=== PATIENT | female | born 1930 | race Caucasian/White ===

== ENCOUNTER 2018-11-14 10:51 | Emergency (ER) | payer MEDICARE ==
[~2018-11-14] VITALS: Ht 165.1 cm; Wt 50.0 kg
--- NOTE | 2018-11-14 11:38 | NUR ---
ADONAY HOLLOWAY AT BEDSIDE.
[2018-11-14] MEDS ORDERED: normal saline 500ml IV soln 1,000 ML IV ONE (12:55)
[2018-11-14] MEDS ORDERED: morphine 2 MG/ML inj. syringe IV ONE (13:15)
--- NOTE | 2018-11-14 13:17 | NUR ---
ASSUMED CARE OF PT FROM MARITZA BUI
[2018-11-14 13:28] LABS: BASOPHILS % (AUTO) 0.2 % (0-1); EOSINOPHILS % (AUTO) 0.4 % (0-6); HEMATOCRIT 41.7 % (35.0-45.0); HEMOGLOBIN 13.9 g/dl (12.0-16.0); LYMPHOCYTES # (AUTO) 0.9 X10'3 (1.1-4.8); LYMPHOCYTES % (AUTO) 9.1 % (21-51); MEAN CORPUSCULAR HEMOGLOBIN 30.9 PG (27.0-31.0); MEAN CORPUSCULAR HGB CONC 33.3 % (33.0-36.5); MEAN PLATELET VOLUME 9.2 FL (7.4-10.4); MONOCYTES # (AUTO) 0.8 X10'3 (0-0.9); MONOCYTES % (AUTO) 8.5 % (2-12); NEUTROPHILS % (AUTO) 81.8 % (42-75); PLATELET COUNT 276 X10'3 (140-440); RED BLOOD COUNT 4.49 X10'6 (4.20-5.60); RED CELL DISTRIBUTION WIDTH 12.7 % (11.5-14.5); WHITE BLOOD COUNT 9.7 X10'3 (4.5-11.0)
--- NOTE | 2018-11-14 13:40 | NUR ---
PT IN XRAY
[2018-11-14 13:47] LABS: ALANINE AMINOTRANSFERASE 23 U/L (12-78); ALBUMIN 3.2 G/DL (3.4-5.0); ALBUMIN/GLOBULIN RATIO 1.1 (1.1-1.5); ALKALINE PHOSPHATASE 82 IU/L (46-116); ANION GAP 9 (8-16); ASPARTATE AMINO TRANSFERASE 19 U/L (10-37); BILIRUBIN,TOTAL 0.7 MG/DL (0.1-1.0); BLOOD UREA NITROGEN 26 MG/DL (7-18); BUN/CREATININE RATIO 35.1 (6.6-38.0); CALCIUM 8.6 MG/DL (8.5-10.1); CHLORIDE 107 MMOL/L (99-107); CREATININE 0.74 MG/DL (0.40-0.90); GLUCOSE 129 MG/DL (70-104); POTASSIUM 3.8 MMOL/L (3.5-5.1); SODIUM 142 MMOL/L (135-145); TOTAL CARBON DIOXIDE 26.3 MMOL/L (24-32); TOTAL PROTEIN 6.2 G/DL (6.4-8.2); eGFR 74 ML/MIN
--- NOTE | 2018-11-14 14:05 | NUR ---
IN AND OUT CATH DONE WITH STERILE TECHNIQUE, PT JAMES WELL, NO COMPLICATIONS, 300ML OF DARK YELLOW URINE INITIAL OUTPUT, SAMPLE SENT TO LAB
--- NOTE | 2018-11-14 14:07 | NUR ---
PT SAID PAIN 5/10 ON LEFT LEG, FAMILY AT BEDSIDE
[2018-11-14 14:51] LABS: CLARITY,URINE CLEAR (Clear); COLOR,URINE YELLOW (Yellow); GLUCOSE, URINE NEGATIVE (Neg); KETONES,URINE 15 mg/dl (Neg); LEUKOCYTE ESTERASE ,URINE NEGATIVE (Neg); NITRITES, URINE NEGATIVE (Neg); OCCULT BLOOD,URINE NEGATIVE (Neg); PH,URINE 6.5 (4.8-8.0); PROTEIN,URINE NEGATIVE (Neg); UROBILINOGEN,URINE 0.2 E.U/dL (0.2-1.0)
[2018-11-14 14:56] LABS: UA COLLECTION TYPE OTHER
--- NOTE | 2018-11-14 15:35 | NUR ---
PT IS RESTLESS, FAMILY AT BEDSIDE TO TRY AND CALM PT, WAITING FOR MRI
[2018-11-14] MEDS ORDERED: LORazepam 2 mg/ml vial IV ONE ×2 (15:40→16:45)
--- NOTE | 2018-11-14 16:01 | NUR ---
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
--- NOTE | 2018-11-14 16:16 | NUR ---
PT TO MRI
[2018-11-14] MEDS ORDERED: HYDR-3965 PO (17:52)
--- NOTE | 2018-11-14 18:11 | NUR ---
PT IS BACK FROM MRI
[2018-11-14] MEDS ORDERED: fentaNYL/PF 50MCG/1 ML 2ML syringe IV ONE (20:25)
[2018-11-15] MEDS ORDERED: fentaNYL/PF 50MCG/1 ML 2ML syringe IV ONE (02:10)
--- NOTE | 2018-11-15 06:45 | NUR ---
requested prn med for pain from Dr. Vasquez.No velasquez catheter order at this time.
--- NOTE | 2018-11-15 07:00 | NUR ---
RECEIVED A VERBAL ORDER FROM DR. BLANCAS FOR FENTANYL 50MCG IV STAT,ORDER NOTED AND CARRIED OUT.
[2018-11-15] MEDS ORDERED: fentaNYL/PF 50MCG/1 ML 2ML syringe IV STA (07:01)
--- NOTE | 2018-11-15 07:43 | NUR ---
REPLACED PATIENT'S WET LINENS AND GOWN WITH CLEAN & DRY LINENS/GOWN. ALSO PLACED SOME DRI-DEMETRIUS PADS UNDER PATIENT. PATIENT STATES THAT SHE "FEELS BEAUTIFUL."
[2018-11-15] MEDS ORDERED: morphine 4 MG/ML inj SYRINge IV ONE (10:40)
[2018-11-15 12:16] VITALS: BP 130/71
[2018-11-15] MEDS ORDERED: haloperidol 5mg tablet PO ONE (13:30)
== END 2018-11-15 18:31 | disposition short-term general hospital (02) ==
LOC: ER 10:52
DX: S32.19XA Other fracture of sacrum, initial encounter for closed fracture (principal); M25.552 Pain in left hip; I10 Essential (primary) hypertension; G89.29 Other chronic pain; Z79.899 Other long term (current) drug therapy; W18.39XA Other fall on same level, initial encounter; Y93.89 Activity, other specified; Y92.89 Other specified places as the place of occurrence of the external cause; Y99.8 Other external cause status
CPT/HCPCS: 36415; 72100; 72148; 72195; 73502; 80053; 81003; 85025; 96374; 96375; 96376; 99285; J2060; J2270; J3010; J7030; P9612; 99284

== ENCOUNTER 2019-01-01 19:36 | Inpatient (IN) | payer MEDICARE | END 2019-01-06 15:38 | LOC: ED HOLD 01-02 00:19 → ER 19:36 → ED HOLD 01-02 02:22 → ORTHO 4S 01-02 14:55 | PROC: 0QS636Z Reposition Right Upper Femur with Intramedullary Internal Fixation Device, Percutaneous Approach (ICD-10-PCS; principal; 2019-01-02 13:45) | DX: S72.141A Displaced intertrochanteric fracture of right femur, initial encounter for closed fracture (principal); G93.41 Metabolic encephalopathy ==

== ENCOUNTER 2019-03-05 09:41 | Inpatient (IN) | payer MEDICARE ==
[~2019-03-05] VITALS: Ht 160 cm; Wt 45.0 kg
[~2019-03-05 09:41] MED LIST: ACET-2119 PO; ACET-2319 PO; AMLO5TAB4 PO; BISM262T15; CELE200C PO; DOCU-28 PO; IBUP-1984 PO; LIDO700A32 TP; LOPE-144; MAGN400O6 PO; POLY17PO10 PO; [UNRECOGNIZED DRUG - REMARK]
[2019-03-05] MEDS ORDERED: normal saline 1000ML IV soln IVB ONE (09:50)
--- NOTE | 2019-03-05 10:00 | NUR ---
DR RHODES CANCELLED STROKE ALERT, CALLING IT ALOC.
[2019-03-05 10:09] LABS: BASOPHILS # (AUTO) 0.1 X10'3 (0-0.2); BASOPHILS % (AUTO) 0.8 % (0-1); EOSINOPHILS % (AUTO) 0.4 % (0-6); HEMATOCRIT 30.7 % (35.0-45.0); HEMOGLOBIN 10.4 g/dl (12.0-16.0); LYMPHOCYTES # (AUTO) 0.8 X10'3 (1.1-4.8); LYMPHOCYTES % (AUTO) 6.8 % (21-51); MEAN CORPUSCULAR HEMOGLOBIN 29.9 PG (27.0-31.0); MEAN CORPUSCULAR HGB CONC 33.8 g/dL (33.0-36.5); MEAN CORPUSCULAR VOLUME 88.6 FL (78-98); MEAN PLATELET VOLUME 7.8 FL (7.4-10.4); MONOCYTES # (AUTO) 0.6 X10'3 (0-0.9); MONOCYTES % (AUTO) 5.2 % (2-12); NEUTROPHILS # (AUTO) 10.5 X10'3 (1.8-7.7); NEUTROPHILS % (AUTO) 86.8 % (42-75); PLATELET COUNT 356 X10'3 (140-440); RED BLOOD COUNT 3.47 X10'6 (4.20-5.60); RED CELL DISTRIBUTION WIDTH 18.4 % (11.5-14.5); WHITE BLOOD COUNT 12.1 X10'3 (4.5-11.0)
[2019-03-05 10:26] LABS: ALANINE AMINOTRANSFERASE 21 U/L (12-78); ALBUMIN/GLOBULIN RATIO 0.6 (1.1-1.5); ALKALINE PHOSPHATASE 129 IU/L (46-116); ANION GAP 3 (8-16); ASPARTATE AMINO TRANSFERASE 22 U/L (10-37); BILIRUBIN,TOTAL 0.4 MG/DL (0.1-1.0); BLOOD UREA NITROGEN 20 MG/DL (7-18); BUN/CREATININE RATIO 36.4 (6.6-38.0); CALCIUM 8.2 MG/DL (8.5-10.1); CHLORIDE 114 MMOL/L (99-107); CREATININE 0.55 MG/DL (0.40-0.90); GLUCOSE 93 MG/DL (70-104); POTASSIUM 3.7 MMOL/L (3.5-5.1); SODIUM 149 MMOL/L (135-145); TOTAL CARBON DIOXIDE 32.3 MMOL/L (24-32); TOTAL PROTEIN 5.4 G/DL (6.4-8.2); eGFR > 90 ML/MIN
[2019-03-05 10:35] LABS: TROPONIN I < 0.04 NG/ML (0.0-0.05)
[2019-03-05 10:42] LABS: INR 1.1 INR; PARTIAL THROMBOPLASTIN TIME 21 SECONDS (22-32)
[2019-03-05] MEDS ORDERED: cefepime 1GM/NS ADD-VANTAGE 100 ML IV ONE (10:45)
[2019-03-05] MEDS ORDERED: azithromycin/NS 500mg/250ml 250 ML IV ONE (10:45)
[2019-03-05] MEDS ORDERED: vancomycin/NS 1 GM ADD-VANTAGE 250 ML X 1 DOSE IV ONE (10:50)
[2019-03-05] MEDS ORDERED: magnesium hydroxide 30ml (MOM) UD suspension PO PRN ×2 (12:20→19:10)
[2019-03-05] MEDS ORDERED: potassium Cl 40MEQ/NS 500ml 500 ML IV PRN ×2 (12:20)
[2019-03-05] MEDS ORDERED: magnesium 4gm in 100ml NS 100 ML IV PRN (12:20)
[2019-03-05] MEDS ORDERED: magnesium 2GM in 50ml NS 50 ML IV PRN (12:20)
[2019-03-05] MEDS ORDERED: acetaminophen 325mg tablet PO PRN ×3 (12:20→19:10)
[2019-03-05] MEDS ORDERED: ipratropium/albuterol 3ml nebule NEB PRN (12:20)
[2019-03-05] MEDS ORDERED: ondansetron/PF 4mg/2ml inj IV PRN (12:20)
[2019-03-05] MEDS ORDERED: magnesium Cl slow-release 64mg tablet PO PRN (12:20)
[2019-03-05] MEDS ORDERED: potassium Cl 20 mEq SR tablet PO PRN ×2 (12:20)
[2019-03-05] MEDS ORDERED: mag hydrox/Alum hydrox/simeth 30ml oral suspension PO PRN ×2 (12:20→19:10)
[2019-03-05 12:37] LABS: CLARITY,URINE SLIGHTLY CLOUDY (Clear); COLOR,URINE YELLOW (Yellow); GLUCOSE, URINE NEGATIVE (Neg); KETONES,URINE 15 mg/dl (Neg); LEUKOCYTE ESTERASE ,URINE NEGATIVE (Neg); NITRITES, URINE NEGATIVE (Neg); OCCULT BLOOD,URINE NEGATIVE (Neg); PROTEIN,URINE NEGATIVE (Neg); UROBILINOGEN,URINE 0.2 E.U/dL (0.2-1.0)
[2019-03-05 12:40] LABS: UA COLLECTION TYPE STRAIGHT CATH
[2019-03-05 12:54] LABS: MUCUS STRANDS MODERATE /LPF (Neg); SQUAMOUS EPITHELIAL CELL,UR FEW /LPF (FEW)
[2019-03-05 12:59] LABS: COARSE GRANULAR CAST 0-3 /LPF (NEGATIVE); HYALINE CASTS 0-3 /LPF (NEGATIVE); YEAST MANY /HPF (NEGATIVE)
[2019-03-05 13:00] LABS: BACTERIA,URINE FEW /HPF (Neg); RBC,URINE NONE SEEN /HPF (0-2)
[2019-03-05] MEDS ORDERED: MELA1TAB28 PO (13:07)
[2019-03-05] MEDS ORDERED: MAG355OR18 PO (13:07)
[2019-03-05] MEDS ORDERED: ASCO500C15 PO (13:07)
[2019-03-05] MEDS ORDERED: ACET-2812 PO (13:07)
[2019-03-05] MEDS ORDERED: FAMO20TA8 PO (13:07)
[2019-03-05] MEDS ORDERED: MULT-933 PO (13:07)
[2019-03-05] MEDS ORDERED: BISA10SU60 RC (13:07)
[2019-03-05] MEDS: ipratropium/albuterol 3ml nebule NEB SCH ×3 (13:11→23:42)
--- NOTE | 2019-03-05 16:45 | NUR ---
JENNIFER Addendum: 03/05/19 at 1708 by Valentina Dawn RN Amended: Links added.
[2019-03-05 18:00] VITALS: BP 153/75
--- NOTE | 2019-03-05 18:10 | NUR ---
Report to Sujey BUI
--- NOTE | 2019-03-05 18:20 | NUR ---
Patient in room [facility]TH[facility] 4008. I have received report from Valentina BUI and had the opportunity to ask questions and assume patient care.
--- NOTE | 2019-03-05 18:48 | NUR ---
Page to Dr. Scott MESSAGE: [id number] Keila Calderon Patient fell at 1410, right after arrival from ER. No known injuries, hx of falls. [email or web address] [id number]
[2019-03-05] MEDS ORDERED: cefepime 2gm inj IV SCH (20:00)
[2019-03-05] MEDS: cefepime 1GM/NS ADD-VANTAGE 100 ML IV SCH (20:20)
[2019-03-05] MEDS: docusate sod 100mg capsule PO SCH (20:25)
[2019-03-05] MEDS: Melatonin 3mg tablet PO SCH (20:25)
[2019-03-05] MEDS: famotidine 20mg tablet PO SCH (20:26)
[2019-03-05] MEDS ORDERED: diphenhydrAMINE 25mg capsule PO PRN (21:00)
[2019-03-05 22:00] VITALS: BP 149/60
[2019-03-06 02:00] VITALS: BP 137/52
[2019-03-06] MEDS: ipratropium/albuterol 3ml nebule NEB SCH ×6 (02:59→23:22)
[2019-03-06 06:00] VITALS: BP 165/69
--- NOTE | 2019-03-06 06:30 | NUR ---
Patient in room [facility]TH[facility] 4008. I have received report from RAMYA Rm and had the opportunity to ask questions and assume patient care.
--- NOTE | 2019-03-06 06:38 | NUR ---
Problems reprioritized. Patient report given, questions answered & plan of care reviewed with Julissa BUI.
[2019-03-06 06:41] LABS: BASOPHILS % (AUTO) 0.2 % (0-1); EOSINOPHILS % (AUTO) 0.6 % (0-6); HEMATOCRIT 33.8 % (35.0-45.0); HEMOGLOBIN 11.1 g/dl (12.0-16.0); LYMPHOCYTES % (AUTO) 12.9 % (21-51); MEAN CORPUSCULAR HEMOGLOBIN 29.1 PG (27.0-31.0); MEAN CORPUSCULAR HGB CONC 32.7 g/dL (33.0-36.5); MEAN CORPUSCULAR VOLUME 89.2 FL (78-98); MONOCYTES # (AUTO) 0.5 X10'3 (0-0.9); MONOCYTES % (AUTO) 6.1 % (2-12); NEUTROPHILS # (AUTO) 6.4 X10'3 (1.8-7.7); NEUTROPHILS % (AUTO) 80.2 % (42-75); PLATELET COUNT 368 X10'3 (140-440); RED BLOOD COUNT 3.79 X10'6 (4.20-5.60); RED CELL DISTRIBUTION WIDTH 17.6 % (11.5-14.5)
[2019-03-06 06:50] LABS: ALBUMIN 2.1 G/DL (3.4-5.0); ANION GAP 8 (8-16); BLOOD UREA NITROGEN 9 MG/DL (7-18); BUN/CREATININE RATIO 18.8 (6.6-38.0); CALCIUM 8.1 MG/DL (8.5-10.1); CHLORIDE 108 MMOL/L (99-107); CREATININE 0.48 MG/DL (0.40-0.90); GLUCOSE 80 MG/DL (70-104); POTASSIUM 3.5 MMOL/L (3.5-5.1); SODIUM 143 MMOL/L (135-145); TOTAL CARBON DIOXIDE 26.9 MMOL/L (24-32); eGFR > 90 ML/MIN
[2019-03-06] MEDS: amLODIPine 5mg tablet PO SCH (08:00)
[2019-03-06] MEDS: K and/or MAG REPLACEMENT MC SCH (08:00)
[2019-03-06] MEDS: docusate sod 100mg capsule PO SCH ×2 (08:00→19:53)
[2019-03-06] MEDS: cefepime 1GM/NS ADD-VANTAGE 100 ML IV SCH ×2 (09:13→19:53)
[2019-03-06] MEDS: famotidine 20mg tablet PO SCH ×2 (09:19→19:53)
[2019-03-06] MEDS: multivitamins, therapeutics tablet PO SCH (09:19)
[2019-03-06] MEDS: azithromycin 250mg tablet PO SCH (09:19)
[2019-03-06] MEDS: ascorbic acid 500mg tablet PO SCH (09:21)
[2019-03-06 10:00] VITALS: BP 153/57
[2019-03-06] MEDS: LIDOcaine 5% patch TP SCH (10:16)
[2019-03-06] MEDS: vancomycin/NS 1 GM ADD-VANTAGE 250 ML IV SCH (12:26)
[2019-03-06 13:19] VITALS: BP 178/69
--- NOTE | 2019-03-06 13:52 | NUR ---
Malnutrition consult: Unable to obtain information from pt as she is documented as nonverbal and A/O x 1. Per past documented wt pt is down 11 # with documented wt of 50 kg on 11/14/18 using gurney scale, current documented wt is 45 kg using bed scale; this is severe wt loss of 10% in 4 months. Pt with no edema however documented with severe muscle weakness. Pt currently meets criteria for malnutrition, MD notified. Pt currently on pureed diet with documented 0% intake x 2 meals. Pt would benefit from Ensure to optimize PO intake, MD and dietary notified. Pt admit with PNA, AMS and possible CVA. Unknown LBM, pt currently with routine Colace however refused it this morning per med list. Will continue to follow. Recommendations: 1) Continue with pureed diet 2) Ensure Enlive TID 3) Encourage PO intake 4) Monitor need for additional bowel care 5) Wt per rx Addendum: 03/06/19 at [address] Amended: Links added.
[2019-03-06 18:00] VITALS: BP 151/70
[2019-03-06] MEDS: lactose-reduced food (Ensure Enlive) - 237ml bottle PO SCH (18:00)
--- NOTE | 2019-03-06 18:15 | NUR ---
Problems reprioritized. Patient report given, questions answered & plan of care reviewed with Jessica BUI.
--- NOTE | 2019-03-06 18:15 | NUR ---
Patient in room [facility]TH[facility] 4008. I have received report from RAMYA Costa and had the opportunity to ask questions and assume patient care.
[2019-03-06] MEDS ORDERED: bisacodyl 10mg suppository rectal RC PRN (18:40)
[2019-03-06] MEDS ORDERED: magnesium hydroxide 30ml (MOM) UD suspension PO PRN (18:40)
[2019-03-06] MEDS: lactobacillus rhamnosus 10,000 MMU CELLS/CAPSULE PO SCH (19:53)
[2019-03-06] MEDS: Melatonin 3mg tablet PO SCH (19:55)
[2019-03-06 22:00] VITALS: BP 94/39
[2019-03-07] MEDS: ipratropium/albuterol 3ml nebule NEB SCH ×6 (03:11→23:37)
[2019-03-07 06:00] VITALS: BP 119/48
[2019-03-07 06:09] LABS: BASOPHILS % (AUTO) 0.4 % (0-1); EOSINOPHILS % (AUTO) 0.6 % (0-6); HEMATOCRIT 30.9 % (35.0-45.0); HEMOGLOBIN 10.2 g/dl (12.0-16.0); LYMPHOCYTES % (AUTO) 15.4 % (21-51); MEAN CORPUSCULAR HEMOGLOBIN 29.4 PG (27.0-31.0); MEAN CORPUSCULAR HGB CONC 33.1 g/dL (33.0-36.5); MEAN CORPUSCULAR VOLUME 88.9 FL (78-98); MEAN PLATELET VOLUME 8.3 FL (7.4-10.4); MONOCYTES # (AUTO) 0.6 X10'3 (0-0.9); MONOCYTES % (AUTO) 8.6 % (2-12); PLATELET COUNT 337 X10'3 (140-440); RED BLOOD COUNT 3.47 X10'6 (4.20-5.60); RED CELL DISTRIBUTION WIDTH 17.6 % (11.5-14.5); WHITE BLOOD COUNT 6.7 X10'3 (4.5-11.0)
[2019-03-07 06:22] LABS: ALBUMIN 1.8 G/DL (3.4-5.0); ANION GAP 4 (8-16); BLOOD UREA NITROGEN 14 MG/DL (7-18); BUN/CREATININE RATIO 26.9 (6.6-38.0); CALCIUM 7.9 MG/DL (8.5-10.1); CHLORIDE 111 MMOL/L (99-107); CREATININE 0.52 MG/DL (0.40-0.90); GLUCOSE 89 MG/DL (70-104); MAGNESIUM 2.1 MG/DL (1.5-2.4); POTASSIUM 3.1 MMOL/L (3.5-5.1); SODIUM 144 MMOL/L (135-145); TOTAL CARBON DIOXIDE 29.5 MMOL/L (24-32); eGFR > 90 ML/MIN
--- NOTE | 2019-03-07 06:33 | NUR ---
Problems reprioritized. Patient report given, questions answered & plan of care reviewed with RAMYA Costa.
--- NOTE | 2019-03-07 06:35 | NUR ---
Patient in room [facility]TH[facility] 4008. I have received report from RAMYA Lopez and had the opportunity to ask questions and assume patient care.
[2019-03-07] MEDS: lactose-reduced food (Ensure Enlive) - 237ml bottle PO SCH ×3 (08:00→18:00)
[2019-03-07] MEDS: K and/or MAG REPLACEMENT MC SCH (08:00)
[2019-03-07] MEDS: cefepime 1GM/NS ADD-VANTAGE 100 ML IV SCH ×2 (09:55→18:56)
[2019-03-07] MEDS: lactobacillus rhamnosus 10,000 MMU CELLS/CAPSULE PO SCH ×2 (09:58→18:53)
[2019-03-07] MEDS: docusate sod 100mg capsule PO SCH ×2 (09:58→18:53)
[2019-03-07] MEDS: amLODIPine 5mg tablet PO SCH (09:59)
[2019-03-07 10:00] VITALS: BP 108/49
[2019-03-07] MEDS: famotidine 20mg tablet PO SCH ×2 (10:00→18:53)
[2019-03-07] MEDS: multivitamins, therapeutics tablet PO SCH (10:00)
[2019-03-07] MEDS: ascorbic acid 500mg tablet PO SCH (10:01)
[2019-03-07] MEDS: azithromycin 250mg tablet PO SCH (10:01)
[2019-03-07] MEDS: vancomycin/NS 1 GM ADD-VANTAGE 250 ML IV SCH (13:11)
[2019-03-07] MEDS: LIDOcaine 5% patch TP SCH (14:03)
[2019-03-07] MEDS ORDERED: potassium Cl oral solution 20 MEQ/15 ML PO PRN (14:33)
[2019-03-07] MEDS: potassium Cl oral solution 20 MEQ/15 ML PO PRN ×3 (14:45→22:43)
[2019-03-07 18:00] VITALS: BP 142/70
--- NOTE | 2019-03-07 18:14 | NUR ---
Problems reprioritized. Patient report given, questions answered & plan of care reviewed with RAMYA Lopez.
--- NOTE | 2019-03-07 18:28 | NUR ---
Patient in room [facility]TH[facility] 4008. I have received report from RAMYA Costa and had the opportunity to ask questions and assume patient care.
[2019-03-07] MEDS: Melatonin 3mg tablet PO SCH (21:04)
[2019-03-07 22:00] VITALS: BP 108/39
[2019-03-08] MEDS: ipratropium/albuterol 3ml nebule NEB SCH ×5 (03:00→23:38)
[2019-03-08 06:00] VITALS: BP 84/48
--- NOTE | 2019-03-08 06:36 | NUR ---
Problems reprioritized. Patient report given, questions answered & plan of care reviewed with RAMYA Cope.
[2019-03-08 07:16] LABS: BASOPHILS % (AUTO) 0.6 % (0-1); EOSINOPHILS # (AUTO) 0.1 X10'3 (0-0.9); EOSINOPHILS % (AUTO) 0.9 % (0-6); HEMATOCRIT 33.9 % (35.0-45.0); HEMOGLOBIN 11.1 g/dl (12.0-16.0); LYMPHOCYTES # (AUTO) 1.5 X10'3 (1.1-4.8); LYMPHOCYTES % (AUTO) 21.3 % (21-51); MEAN CORPUSCULAR HEMOGLOBIN 29.7 PG (27.0-31.0); MEAN CORPUSCULAR HGB CONC 32.7 g/dL (33.0-36.5); MEAN CORPUSCULAR VOLUME 90.7 FL (78-98); MEAN PLATELET VOLUME 8.5 FL (7.4-10.4); MONOCYTES # (AUTO) 0.6 X10'3 (0-0.9); MONOCYTES % (AUTO) 8.4 % (2-12); NEUTROPHILS # (AUTO) 4.9 X10'3 (1.8-7.7); NEUTROPHILS % (AUTO) 68.8 % (42-75); PLATELET COUNT 327 X10'3 (140-440); RED BLOOD COUNT 3.73 X10'6 (4.20-5.60); RED CELL DISTRIBUTION WIDTH 17.9 % (11.5-14.5); WHITE BLOOD COUNT 7.1 X10'3 (4.5-11.0)
[2019-03-08 07:29] LABS: ALBUMIN 1.8 G/DL (3.4-5.0); ANION GAP 7 (8-16); BLOOD UREA NITROGEN 14 MG/DL (7-18); BUN/CREATININE RATIO 25.9 (6.6-38.0); CHLORIDE 112 MMOL/L (99-107); CREATININE 0.54 MG/DL (0.40-0.90); GLUCOSE 95 MG/DL (70-104); MAGNESIUM 2.1 MG/DL (1.5-2.4); POTASSIUM 4.1 MMOL/L (3.5-5.1); SODIUM 143 MMOL/L (135-145); TOTAL CARBON DIOXIDE 24.5 MMOL/L (24-32); eGFR > 90 ML/MIN
[2019-03-08] MEDS: amLODIPine 5mg tablet PO SCH (07:42)
[2019-03-08] MEDS: LIDOcaine 5% patch TP SCH (07:44)
[2019-03-08] MEDS: lactobacillus rhamnosus 10,000 MMU CELLS/CAPSULE PO SCH ×2 (07:44→20:46)
[2019-03-08] MEDS: famotidine 20mg tablet PO SCH ×2 (07:44→20:46)
[2019-03-08] MEDS: multivitamins, therapeutics tablet PO SCH (07:44)
[2019-03-08] MEDS: ascorbic acid 500mg tablet PO SCH (07:44)
[2019-03-08] MEDS: cefepime 1GM/NS ADD-VANTAGE 100 ML IV SCH ×2 (07:44→20:46)
[2019-03-08] MEDS: azithromycin 250mg tablet PO SCH (07:45)
[2019-03-08] MEDS: lactose-reduced food (Ensure Enlive) - 237ml bottle PO SCH ×3 (07:56→18:00)
[2019-03-08] MEDS: docusate sod 100mg capsule PO SCH ×2 (07:57→15:47)
[2019-03-08] MEDS: K and/or MAG REPLACEMENT MC SCH (08:00)
[2019-03-08 10:00] VITALS: BP 126/51
[2019-03-08] MEDS ORDERED: VANCOMYCIN LEVEL IV ONE (11:30)
[2019-03-08 18:00] VITALS: BP 84/48
--- NOTE | 2019-03-08 18:06 | NUR ---
Problems reprioritized. Patient report given, questions answered & plan of care reviewed with Angélica BUI.
--- NOTE | 2019-03-08 19:03 | NUR ---
Report rec'd from amanda Cope.
[2019-03-08] MEDS: Melatonin 3mg tablet PO SCH (20:45)
[2019-03-08 22:00] VITALS: BP 123/69
[2019-03-09] MEDS: ipratropium/albuterol 3ml nebule NEB SCH ×6 (03:22→23:00)
[2019-03-09 06:00] VITALS: BP 117/54
--- NOTE | 2019-03-09 06:10 | NUR ---
Patient in room [facility]TH[facility] 4008. I have received report from Brittney BUI and had the opportunity to ask questions and assume patient care.
--- NOTE | 2019-03-09 06:30 | NUR ---
Patient in room ORTH[facility] 4008. I have received report from Prisca BUI and had the opportunity to ask questions and assume patient care.
--- NOTE | 2019-03-09 06:33 | NUR ---
REPORT GIVEN TO RAMYA OWNES.
[2019-03-09 06:59] VITALS: BP 137/65
--- NOTE | 2019-03-09 07:00 | NUR ---
Entered pt room for introduction, NC was not in place, pulse ox at 81%, repositioned NC and pulse ox went up to 91% on 2.5L
[2019-03-09] MEDS: K and/or MAG REPLACEMENT MC SCH (08:00)
[2019-03-09] MEDS: docusate sod 100mg capsule PO SCH ×2 (08:22→20:00)
[2019-03-09] MEDS: lactobacillus rhamnosus 10,000 MMU CELLS/CAPSULE PO SCH ×2 (08:22→20:00)
[2019-03-09] MEDS: amLODIPine 5mg tablet PO SCH (08:22)
[2019-03-09] MEDS: cefepime 1GM/NS ADD-VANTAGE 100 ML IV SCH ×2 (08:22→20:30)
[2019-03-09] MEDS: famotidine 20mg tablet PO SCH ×2 (08:23→20:00)
[2019-03-09] MEDS: azithromycin 250mg tablet PO SCH (08:23)
[2019-03-09] MEDS: LIDOcaine 5% patch TP SCH (08:23)
[2019-03-09] MEDS: ascorbic acid 500mg tablet PO SCH (08:23)
[2019-03-09] MEDS: multivitamins, therapeutics tablet PO SCH (08:23)
[2019-03-09] MEDS: lactose-reduced food (Ensure Enlive) - 237ml bottle PO SCH ×3 (08:28→18:00)
--- NOTE | 2019-03-09 11:31 | NUR ---
reassessment: Pt PO 50% pureed diet w/ 25% ONS meeting needs. BETO ordered BSS per GROCERY CLERK since pt on pureed diet w/ no liquid consistency recs or BSS yet and hx dementia nonverbal. LBM 03/08. Will continue to monitor. Recommendations: 1) Continue with pureed diet; liquid recs per GROCERY CLERK 2) Ensure Enlive TID; d/c if NTL recs per GROCERY CLERK 3) Encourage PO intake 4) Monitor need for additional bowel care 5) Wt per rx Addendum: 03/09/19 at [address] Amended: Links added.
[2019-03-09 11:34] VITALS: BP 112/46
--- NOTE | 2019-03-09 11:55 | NUR ---
Problems reprioritized. Patient report given, questions answered & plan of care reviewed with Cristofer BUI.
--- NOTE | 2019-03-09 12:13 | NUR ---
Student documentation:I have reviewed and agree with all interventions, assessments performed and documented by Jovanna Hartman.
[2019-03-09 12:28] LABS: BASOPHILS # (AUTO) 0.2 X10'3 (0-0.2); BASOPHILS % (AUTO) 1.1 % (0-1); EOSINOPHILS % (AUTO) 0.1 % (0-6); HEMATOCRIT 39.1 % (35.0-45.0); HEMOGLOBIN 12.7 g/dl (12.0-16.0); LYMPHOCYTES # (AUTO) 0.9 X10'3 (1.1-4.8); LYMPHOCYTES % (AUTO) 6.1 % (21-51); MEAN CORPUSCULAR HGB CONC 32.6 g/dL (33.0-36.5); MEAN CORPUSCULAR VOLUME 88.9 FL (78-98); MEAN PLATELET VOLUME 8.3 FL (7.4-10.4); MONOCYTES # (AUTO) 0.8 X10'3 (0-0.9); MONOCYTES % (AUTO) 5.9 % (2-12); NEUTROPHILS # (AUTO) 12.6 X10'3 (1.8-7.7); NEUTROPHILS % (AUTO) 86.8 % (42-75); PLATELET COUNT 424 X10'3 (140-440); RED BLOOD COUNT 4.39 X10'6 (4.20-5.60); RED CELL DISTRIBUTION WIDTH 18.1 % (11.5-14.5); WHITE BLOOD COUNT 14.5 X10'3 (4.5-11.0)
[2019-03-09 18:00] VITALS: BP 124/49
--- NOTE | 2019-03-09 18:11 | NUR ---
Problems reprioritized. Patient report given, questions answered & plan of care reviewed with Angélica patel.
--- NOTE | 2019-03-09 18:17 | NUR ---
REPORT REC'D FROM RAMYA OWENS.
[2019-03-09] MEDS: Melatonin 3mg tablet PO SCH (20:46)
[2019-03-10] MEDS: ipratropium/albuterol 3ml nebule NEB SCH ×4 (03:00→15:00)
[2019-03-10 06:00] VITALS: BP 102/46
--- NOTE | 2019-03-10 06:13 | NUR ---
report given to amanda Cpoe.
[2019-03-10] MEDS: lactobacillus rhamnosus 10,000 MMU CELLS/CAPSULE PO SCH (07:37)
[2019-03-10] MEDS: docusate sod 100mg capsule PO SCH (07:37)
[2019-03-10] MEDS: multivitamins, therapeutics tablet PO SCH (07:37)
[2019-03-10] MEDS: famotidine 20mg tablet PO SCH (07:37)
[2019-03-10] MEDS: ascorbic acid 500mg tablet PO SCH (07:37)
[2019-03-10] MEDS: cefepime 1GM/NS ADD-VANTAGE 100 ML IV SCH (07:41)
[2019-03-10] MEDS: LIDOcaine 5% patch TP SCH (07:44)
[2019-03-10] MEDS: amLODIPine 5mg tablet PO SCH (07:53)
[2019-03-10] MEDS: K and/or MAG REPLACEMENT MC SCH (08:00)
[2019-03-10] MEDS: lactose-reduced food (Ensure Enlive) - 237ml bottle PO SCH ×2 (08:40→13:42)
[2019-03-10 10:00] VITALS: BP 110/40
[2019-03-10 13:52] LABS: ALBUMIN 1.9 G/DL (3.4-5.0); ANION GAP 7 (8-16); BLOOD UREA NITROGEN 16 MG/DL (7-18); BUN/CREATININE RATIO 30.8 (6.6-38.0); CHLORIDE 109 MMOL/L (99-107); CREATININE 0.52 MG/DL (0.40-0.90); GLUCOSE 90 MG/DL (70-104); POTASSIUM 3.9 MMOL/L (3.5-5.1); SODIUM 142 MMOL/L (135-145); TOTAL CARBON DIOXIDE 26.4 MMOL/L (24-32); eGFR > 90 ML/MIN
--- NOTE | 2019-03-10 15:39 | NUR ---
Report called to KANDI Moncada removed, no tele on patient.
== END 2019-03-10 16:15 | DRG 871 ==
LOC: ER 09:41 → ORTHO 4S 14:51 → CMPBEDREQ 20:17
PROVIDERS: ADMIT Hospitalist; ATTEND Hospitalist
DX: A41.9 Sepsis, unspecified organism (principal); I62.01 Nontraumatic acute subdural hemorrhage; J18.9 Pneumonia, unspecified organism; E43 Unspecified severe protein-calorie malnutrition; I62.03 Nontraumatic chronic subdural hemorrhage; G93.40 Encephalopathy, unspecified; G96.0 Cerebrospinal fluid leak; Z68.1 Body mass index [BMI] 19.9 or less, adult; F03.90 Unspecified dementia, unspecified severity, without behavioral disturbance, psychotic disturbance, mood disturbance, and anxiety; G89.4 Chronic pain syndrome; I10 Essential (primary) hypertension; J32.4 Chronic pansinusitis; M54.9 Dorsalgia, unspecified; Z66 Do not resuscitate; Z88.8 Allergy status to other drugs, medicaments and biological substances; Z79.899 Other long term (current) drug therapy
CPT/HCPCS: 36415; 70450; 71045; 80048; 80053; 81001; 82948; 83605; 83735; 83880; 84145; 84484; 85025; 85610; 85730; 87040; 87070; 87077; 87088; 92508; 92616; 93005; 94640; 94760; 96365; 96366; 96368; 99285; G0378; J0456; J0692; J3370